=== PATIENT | female | born 1995 | race Caucasian/White ===

== ENCOUNTER 2021-06-30 11:24 | Emergency (ER) | payer OTHER ==
[2021-06-30] MEDS ORDERED: NAPROXEN500 MG PO (12:56)
[2021-06-30] MEDS ORDERED: BACLOFEN 10MG T10 MG PO (12:56)
== END 2021-06-30 13:14 | disposition home or self-care (01) ==
LOC: FER 11:24
DX: M54.50 Low back pain, unspecified (principal); M25.551 Pain in right hip; M79.601 Pain in right arm; F17.210 Nicotine dependence, cigarettes, uncomplicated; E03.9 Hypothyroidism, unspecified; Z79.890 Hormone replacement therapy
CPT/HCPCS: 96372; J1100; J1885